=== PATIENT | female | born 1955 | race Caucasian/White ===

== ENCOUNTER → 2016-08-04 | Day surgery (SDC) | payer BC, OTHER ==
[~2016-08-04] MED LIST: BUPIVACAINE HCL PF 0.5% 10 ML VIAL ONE; LACTATED RINGER'S 1000 ML INJ 1,000 ML ONE; MIDAZOLAM HCL 2 MG/2 ML VIAL ONE; PROPOFOL 500 MG/50 ML BTL IV ONE; ceFAZolin 2 GM PREMIX 50 ML ONE
--- NOTE | 2016-08-08 08:13 | MP ---
cc: EMILY PAGAN DATE OF SURGERY August 05, [address] Emily Pagan BAG MENDER None. PREOPERATIVE DIAGNOSES 1. Right foot second digit hammertoe. 2. Right foot second MPJ contracture. POSTOPERATIVE DIAGNOSES 1. Right foot second digit hammertoe. 2. Right foot second MPJ contracture. PROCEDURES PERFORMED 1. Right foot second digit PIPJ arthrodesis. 2. Right foot second metatarsophalangeal joint capsulotomy. PATHOLOGY SENT None. ANESTHESIA MAC with local. INJECTABLES 2 cc of 0.5% Marcaine plain. IMPLANTABLES one 0.062 K-wire, 3-0 Monocryl, 3-0 Prolene. HEMOSTASIS With pneumatic ankle tourniquet at 250 mmHg. ESTIMATED BLOOD LOSS Less than 5 mL. COMPLICATIONS None. INDICATIONS Ms. Kay is a 61-year-old patient well-known to me. She has had two other surgeries on the second digit including arthroplasty by another surgeon and an exostectomy by myself. The patient has yet to achieve satisfactory results as she still has a the deformity at the proximal interphalangeal joint. At this time I have determined that a fusion is most likely to give her the results that she desires of a more permanent nature. The consent was signed. The procedure was explained. There are no guarantees given. PROCEDURE Under mild sedation, the patient was brought into the operating room, placed on the operating table in a supine position. Following IV sedation, pneumatic ankle tourniquet was placed around the right ankle. The second ray was then injected with 10 cc of 0.5% Marcaine plain. The foot was then scrubbed, prepped and draped in the usual aseptic manner. An Esmarch bandage was used to exsanguinate the right foot and the pneumatic ankle tourniquet was inflated to 250 mmHg. Attention was directed to the dorsal aspect of the second PIPJ where a linear longitudinal incision was created through the skin and deepened through subcutaneous tissue to the level of the tendon. The tendon was transected horizontally at the level of the joint to expose the opposing cartilaginous surfaces. The proximal aspect of the intermediate phalanx and the distal aspect of the proximal phalanx were both removed using the oscillating saw and the cartilage and bone was removed from the field in toto. This allowed for rectus positioning of the toe. However, there was still a dorsal elevation at the metatarsophalangeal joint. The incision was lengthened proximally and the tendon was reflected proximally in order to reveal the capsule of metatarsophalangeal joint. A capsulotomy was performed and there was a notable release of the contracture and notable plantar flexing of the digit at the level of the MPJ. A K-wire was retrograde drilled through all three phalanges and crossed into the MPJ to allow for stabilization in the plantar flexed position upon healing. The positioning and implantation of the K-wire were checked under fluoroscopy and noted to be in excellent alignment. The area was then flushed with copious amounts of sterile saline. The K-wire was bent and cut and a Jurgan's ball was placed on the tip. The extensor tendon was reapproximated using 3-0 Monocryl. No tension was noted on the tendon. The deep and subcutaneous tissues were reapproximated using 3-0 Monocryl and skin was reapproximated using 3-0 Prolene. The pneumatic ankle tourniquet was released. There was a prompt hyperemic response to all digits of the right foot. The foot was cleansed and dressed with sterile Adaptic, 4x4s, Maria L and an Rohit wrap. The patient tolerated the procedure and the anesthesia well. She will recover in the PACU for a period of time before being discharged home with written and oral postoperative instructions. Emily RASMUSSEN/SSB /7:51 AM /8:02 AM
== END | disposition home or self-care (01) ==
LOC: ESDC 08:13
PROVIDERS: ATTEND Podiatrist Foot & Ankle Surgery
DX: M20.41 Other hammer toe(s) (acquired), right foot (principal)
CPT/HCPCS: 01480; 28285; 73630; 76000; J0690; J2250; J3010; J7120